=== PATIENT | male | born 1985 | race Asian ===

== ENCOUNTER 2021-01-05 12:01 | Inpatient (IN) | payer MEDICAID ==
[~2021-01-05] VITALS: Ht 167.6 cm; Wt 68.2 kg
[2021-01-05 12:15] VITALS: BP 116/65
[2021-01-05] MEDS ORDERED: BUPIVACAINE LIPOSOME/PF 1.3%-13.3MG/ML SUSPENSION 20 ML VIAL INJ ONE (12:15)
[2021-01-05] MEDS ORDERED: VANCOMYCIN HCL 1 GM/VIAL ONE (12:41)
[2021-01-05] MEDS ORDERED: BUPIVACAINE HCL/PF 0.5% 30 ML VIAL ONE (12:41)
[2021-01-05] MEDS ORDERED: MICROFIBRILLAR COLLAGEN 1 GM PACKAGE TP ONE (12:42)
[2021-01-05] MEDS ORDERED: GELATIN SPONGE,ABSORBABLE 12-7 MM TP ONE (12:42)
[2021-01-05] MEDS ORDERED: THROMBIN, BOVINE 20000 UNITS/VIAL POWDER TP ONE (12:42)
[2021-01-05] MEDS ORDERED: SODIUM CL IRRIG SOLN BAG 3,000 ML IRRIG ONE (12:42)
[2021-01-05] MEDS ORDERED: MUPIROCIN CALCIUM 2% 22 GM OINTMENT ONE (12:42)
[2021-01-05] MEDS ORDERED: GELATIN SPONGE,ABSORBABLE 50 MM TP ONE (12:43)
[2021-01-05 13:05] LABS: BASOPHILS % (AUTO) 1.4 % (0.0-2.0); EOSINOPHILS % (AUTO) 6.4 % (1.0-6.0); HEMOGLOBIN 15.9 g/dL (13.5-17.5); LYMPHOCYTES # (AUTO) 2.5 K/uL (1.0-4.8); LYMPHOCYTES % (AUTO) 47.3 % (22.0-44.0); MEAN CORPUSCULAR HEMOGLOBIN 32.7 pg (26.0-34.0); MEAN CORPUSCULAR HGB CONC 33.2 G/dL (31.0-37.0); MEAN CORPUSCULAR VOLUME 99 fL (80-100); MONOCYTES # (AUTO) 0.3 K/uL (0.1-1.0); MONOCYTES % (AUTO) 5.5 % (2.0-9.0); NEUTROPHILS # (AUTO) 2.1 K/uL (1.8-7.7); NEUTROPHILS % (AUTO) 39.4 % (40.0-70.0); PLATELET COUNT (AUTO) 322 K/uL (150-450); RED BLOOD CELL COUNT(AUTO) 4.88 MIL/uL (4.50-5.90); RED CELL DISTRIBUTION WIDTH 13.3 % (11.5-14.5)
[2021-01-05 13:15] LABS: ANION GAP 6 mmol/L (8-16); CALCIUM, TOTAL 9.3 mg/dL (8.8-10.5); CARBON DIOXIDE 29 mmol/L (22-29); CHLORIDE 105 mmol/L (98-107); CREATININE 0.97 mg/dL (0.60-1.30); GLOMERULAR FILTR. RATE CALC > 60 mL/min (>60); GLUCOSE,RANDOM 104 mg/dL (70-110); POTASSIUM 4.5 mmol/L (3.5-5.1); SODIUM SERUM 140 mmol/L (136-145); UREA NITROGEN, BLOOD 22 mg/dL (7-18)
[2021-01-05 13:21] LABS: ALANINE AMINOTRANSFERASE 21 U/L (12-78); ALBUMIN 4.4 g/dL (3.4-5.0); ALKALINE PHOSPHATASE 77 U/L (46-116); ASPARTATE AMINOTRANSFERASE 13 U/L (15-37); BILIRUBIN,TOTAL 0.6 mg/dL (0.1-1.0); TOTAL PROTEIN, SERUM 8.1 g/dL (6.4-8.2)
[2021-01-05] MEDS ORDERED: 0.9% SODIUM CHLORIDE 10 ML SYRINGE IVP PRN (13:30)
[2021-01-05] MEDS ORDERED: ONDANSETRON HCL 4 MG/2 ML VIAL IVP PRN (13:30)
[2021-01-05] MEDS ORDERED: ACETAMINOPHEN 325 MG TABLET PO PRN (13:30)
[2021-01-05] MEDS ORDERED: RINGERS SOLUTION,LACTATED 1,000 ML IV ONE ×2 (13:33→15:02)
[2021-01-05 13:53] LABS: COVID AG,FIA SOURCE NASOPHARYNGEAL
[2021-01-05] MEDS ORDERED: FentaNYL CITRATE PF 100 MCG/2 ML VIAL IVP PRN (14:15)
[2021-01-05] MEDS ORDERED: MEPERIDINE-PF 25 MG/ML VIAL IVP PRN (14:15)
[2021-01-05] MEDS ORDERED: HYDROmorphone 2 MG/ML VIAL ONE (15:35)
[2021-01-05] MEDS: HYDROmorphone 2 MG/ML VIAL IVP PRN ×3 (15:36→16:11)
[2021-01-05] MEDS ORDERED: NEOSTIGMINE METHYLSULFATE 1 MG/ML 10 ML VIAL IVP ONE (17:14)
[2021-01-05] MEDS ORDERED: ONDANSETRON HCL 4 MG/2 ML VIAL IVP ONE (17:14)
[2021-01-05] MEDS ORDERED: FentaNYL CITRATE PF 100 MCG/2 ML VIAL IVP ONE (17:14)
[2021-01-05] MEDS ORDERED: LIDOCAINE/PF 2% 5 ML VIAL IM ONE (17:14)
[2021-01-05] MEDS ORDERED: PROPOFOL 1% 20 ML VIAL IVP ONE (17:14)
[2021-01-05] MEDS ORDERED: METOCLOPRAMIDE HCL 5 MG/ML 2 ML VIAL IVP ONE (17:14)
[2021-01-05] MEDS ORDERED: GLYCOPYRROLATE 0.2 MG/ML VIAL IM ONE (17:14)
[2021-01-05] MEDS ORDERED: ROCURONIUM BROMIDE 10 MG/ML 5 ML VIAL IVP ONE (17:14)
[2021-01-05] MEDS ORDERED: MIDAZOLAM HCL 2 MG/2 ML VIAL IVP ONE (17:14)
[2021-01-05] MEDS ORDERED: OXYGEN THERAPY IH SCH (20:00)
== END 2021-01-05 17:15 | disposition home or self-care (01) | DRG 315 ==
LOC: EMS 12:01 → 6N 14:54
PROVIDERS: ADMIT Internal Medicine; ATTEND Internal Medicine
PROC: 2W3AX1Z Immobilization of Right Upper Arm using Splint (ICD-10-PCS; 2021-01-05)
PROC: 0PSH04Z Reposition Right Radius with Internal Fixation Device, Open Approach (ICD-10-PCS; principal; 2021-01-05 13:30)
DX: S52.351A Displaced comminuted fracture of shaft of radius, right arm, initial encounter for closed fracture (principal); Z20.822 Contact with and (suspected) exposure to COVID-19; X58.XXXA Exposure to other specified factors, initial encounter; Y93.89 Activity, other specified; Y92.89 Other specified places as the place of occurrence of the external cause; Y99.8 Other external cause status
CPT/HCPCS: 76001; 80053; 85025; 99285; A9575; C9290; J0690; J1170; J2250; J2405; J2704; J2765; J3010; J3370; J3490; J7120